=== PATIENT | male | born 1975 | race African-American/Black ===

== ENCOUNTER 2018-12-11 00:39 | Emergency (ER) | payer SELFPAY ==
[~2018-12-11] VITALS: Ht 182.9 cm; Wt 72.6 kg
--- NOTE | 2018-12-11 00:39 | NUR ---
Patient to ER bed 4 to gown for evaluation. Side rails up.
[2018-12-11 00:40] VITALS: BP_SYST 137
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
--- NOTE | 2018-12-11 01:17 | NUR ---
Dr. Bustillo bedside for Pt eval
[2018-12-11] MEDS ORDERED: LIDOCAINE/EPI 1% 1:100000 20 ML VIAL IJ ONE (01:30)
[2018-12-11] MEDS ORDERED: LIDOCAINE/EPI 1% 1:100000 20 ML VIAL INJ ONE (01:36)
--- NOTE | 2018-12-11 01:52 | NUR ---
Patient moved to bed 03 for suturing.
--- NOTE | 2018-12-11 02:01 | NUR ---
dr mckeon at bedside suturing the patient
[2018-12-11 02:35] VITALS: BP_SYST 137
--- NOTE | 2018-12-11 02:35 | NUR ---
Patient given written and verbal discharge instructions and verbalizes understanding. ER MD discussed with patient the results and treatment provided. Patient in stable condition. ID arm band removed. Patient educated on pain management and to follow up with PMD. Pain Scale 3/10. Opportunity for questions provided and answered. Medication side effect fact sheet provided.
== END 2018-12-11 02:35 | disposition home or self-care (01) ==
LOC: SED 00:39
DX: S01.511A Laceration without foreign body of lip, initial encounter (principal); Y04.0XXA Assault by unarmed brawl or fight, initial encounter; Y93.89 Activity, other specified; Y92.89 Other specified places as the place of occurrence of the external cause; Y99.8 Other external cause status
CPT/HCPCS: 99284